=== PATIENT | female | born 1935 | race Two or more races ===

== ENCOUNTER 2020-01-14 17:59 | Inpatient (IN) | payer MEDICARE ==
[~2020-01-14] VITALS: Ht 152.4 cm; Wt 68.5 kg
[2020-01-14 22:17] VITALS: BP 132/69
--- NOTE | 2020-01-14 22:40 | NUR ---
NURSE NOTES: Patient arrived via ambulance as a direct admission from [facility]. Patient is awake and alert. On droplet/contact isolation precautions for shingles. Skin intact besides scab on L buttock. On room air with no signs of distress or SOB. Belongings checked and accounted for. Belongings form signed by patient. No IV access - will attempt to insert. Spoke with Dr. Gann. New orders received and carried out. Bed locked and in lowest position. Call light in reach. Bed alarm on. Will continue to monitor.
[2020-01-14] MEDS ORDERED: Fleet's Enema 133ml RECTAL PRN (23:15)
[2020-01-14] MEDS ORDERED: Tums 500mg ORAL PRN (23:15)
[2020-01-14] MEDS ORDERED: Milk of Magnesia 30ml Ud ORAL PRN (23:15)
[2020-01-14] MEDS ORDERED: HYDROcodone/Acetamin 10/325 tab ORAL PRN (23:15)
[2020-01-15] VITALS: BP 145/76
[2020-01-15] MEDS: ceFAZolin sod 1 GM in D5W 55 ML IVPB SCH ×4 (01:45→17:34)
--- NOTE | 2020-01-15 02:31 | NUR ---
NURSE NOTES: Patient extremely combative, attempting to punch/kick staff and trying to get out of bed without assist. Left message for Dr. Rouse. Awaiting callback. Will continue to monitor.
--- NOTE | 2020-01-15 02:52 | NUR ---
NURSE NOTES: Patient refusing MRSA and VRE swabs. Patient agitated and combative at this time. Will continue to monitor.
--- NOTE | 2020-01-15 02:57 | NUR ---
NURSE NOTES: Contacted Dr. Allison to inform him of patient's EKG results. Left message. Awaiting callback.
[2020-01-15 04:00] VITALS: BP 136/87
[2020-01-15 07:09] LABS: BASOPHILS % (AUTO) 0.6 % (0.0-2.0); EOSINOPHILS % (AUTO) 1.6 % (0.0-3.0); HEMATOCRIT 47.2 % (37.0-47.0); HEMOGLOBIN 16.2 G/DL (12.0-16.0); LYMPHOCYTES % (AUTO) 27.8 % (20.0-45.0); MEAN CORPUSCULAR VOLUME 89 FL (80-99); MONOCYTES % (AUTO) 10.5 % (1.0-10.0); NEUTROPHILS % (AUTO) 59.5 % (45.0-75.0); PLATELET COUNT 231 K/UL (150-450); RED BLOOD COUNT 5.32 M/UL (4.20-5.40); RED CELL DISTRIBUTION WIDTH 11.5 % (11.6-14.8); WHITE BLOOD COUNT 10.3 K/UL (4.8-10.8)
[2020-01-15 07:20] LABS: ALANINE AMINOTRANSFERASE 16 U/L (12-78); ALKALINE PHOSPHATASE 62 U/L (46-116); ANION GAP 8 mmol/L (5-15); ASPARTATE AMINO TRANSFERASE 17 U/L (15-37); BILIRUBIN,TOTAL 0.9 MG/DL (0.2-1.0); BLOOD UREA NITROGEN 16 mg/dL (7-18); CALCIUM 9.9 MG/DL (8.5-10.1); CARBON DIOXIDE 30 MMOL/L (21-32); CHLORIDE 104 MMOL/L (98-107); CREATININE 0.9 MG/DL (0.55-1.30); POTASSIUM 3.8 MMOL/L (3.5-5.1); SODIUM 142 MMOL/L (136-145)
--- NOTE | 2020-01-15 07:46 | NUR ---
HAND-OFF: Report given to ROBERTA Fisher.
[2020-01-15 08:00] VITALS: BP 143/78
--- NOTE | 2020-01-15 08:09 | NUR ---
NURSE NOTES: patient is in the bed alert and awake. respiration is even and unlabored on room air. verbalized pain to bilateral knee, will administer pain medication as prescribed. left hand saline lock 22 g is in-place, and patent. no redness, swelling and warmth noted on IV site. bed alarm on for fall precaution. call light is within reach, will continue to follow plan of care. Addendum: 01/15/20 at 0821 by Cyril Payne RN patient is in the bed alert and awake. respiration is even and unlabored on room air. verbalized pain to bilateral knee, will administer pain medication as prescribed. left hand saline lock 22 g is in-place, and patent. no redness, swelling and warmth noted on IV site. bed alarm on for fall precaution. patient has yellow gown and yellow sock on due to high risk for fall. Encouraged patient to call for assist at all time, verbalized understanding. call light is within reach, will continue to follow plan of care.
[2020-01-15] MEDS: Digoxin 0.125mg tab ORAL SCH (09:00)
[2020-01-15] MEDS ORDERED: Metoprolol Succinate XL 50mg tab ORAL SCH (09:00)
[2020-01-15] MEDS: Docusate 100mg cap ORAL SCH ×2 (09:00→17:37)
--- NOTE | 2020-01-15 09:00 | NUR ---
NURSE NOTES: Rn assessed patient with the help of guide dog instructor service. Per [place] speaking guide dog instructor [phone],patient is confused when she translated what RN asked to the questions,patient knows her name and knows that she is in the hospital but does not remember her date or current date. Patient complains of mild pain on her bilateral knees due to chronic OA. Appled lidoderm patches as ordered. Will continue to monitor.
--- NOTE | 2020-01-15 09:15 | NUR ---
NURSE NOTE: patient refused all her AM medications including acyclovir, and digoxin. educated patent the benefits of medication, patient still noncompliant. paged , awaiting to return call.
--- NOTE | 2020-01-15 10:00 | History and Physical Report ---
DATE OF ADMISSION: 01/14/2020 CHIEF COMPLAINT: Cellulitis, zoster, chest pain. HISTORY OF PRESENT ILLNESS: The patient is a pleasant 84-year-old female. She currently resides at the alf facility. She recently developed a rash that was consistent with shingles. She was started on acyclovir, developed worsening rash, erythema and pain, subjective fevers, and chills. She also complained of vague chest pain. In light of the worsening rash, she is now admitted for further evaluation and care. PAST MEDICAL HISTORY: As above. PAST SURGICAL HISTORY: None. CURRENT MEDICATIONS: Reconciled and reviewed. ALLERGIES: None. FAMILY HISTORY: None. SOCIAL HISTORY: Negative for tobacco, ethanol, or drugs. REVIEW OF SYSTEMS: GENERAL: Positive for fevers and chills, but no night sweats. HEENT: No headaches or visual changes. CARDIOPULMONARY: Positive for chest pain. No palpitations. No shortness of breath. GASTROINTESTINAL: No nausea or vomiting. GENITOURINARY: No urgency or frequency. MUSCULOSKELETAL: No joint pain or swelling. NEUROLOGIC: No evidence of seizures. Positive history of stroke with left-sided hemiparesis. PHYSICAL EXAMINATION: VITAL SIGNS: Temperature 98 degrees, pulse 81, respirations 20, and blood pressure 145/76. GENERAL: The patient is well developed, in no apparent distress. NECK: Supple. No lymphadenopathy. HEART: Irregularly irregular. LUNGS: Clear. ABDOMEN: Soft, nontender, and nondistended. EXTREMITIES: Without clubbing or cyanosis. Over the left , there are numerous vesicles with surrounding erythema. ASSESSMENT: This is a pleasant female admitted with complaints of shingles complicated by cellulitis, atypical chest pain, atrial fibrillation, and prior history of stroke. PLAN: 1. Oral acyclovir, IV antibiotics for cellulitis. 2. Cardiology followup regarding the patient's chest pain. 3. Continue outpatient cardiac regimen including Xarelto for stroke prophylaxis. 4. Plan of care has been discussed with the patient. Giancarlo Gann M.D. DR: JULIANNA JOB#: [id number] CC:
--- NOTE | 2020-01-15 11:35 | NUR ---
NURSE NOTES: CRE,VRE swab done and sent it to lab,patient refused MRSA swab x3.
[2020-01-15 12:00] VITALS: BP 111/70
--- NOTE | 2020-01-15 12:51 | NUR ---
NURSE NOTES: Dr. Gann is aware of refusal of medications including acyclovior po. Dr. Gann said he contacted to Dr. Reyes and Dr. Reyes changed po to IV Acyclovior and patient was seen by Dr. Sai Thomas who covers for Dr. Reyes.
[2020-01-15] MEDS ORDERED: TYLENOL325 MG ORAL (15:08)
[2020-01-15] MEDS ORDERED: MELATONIN3 M3 PO (15:08)
[2020-01-15] MEDS ORDERED: NORCO 10-325 T1 EACH ORAL (15:08)
[2020-01-15] MEDS ORDERED: LIDODERM700 M1 TOPIC (15:08)
[2020-01-15] MEDS ORDERED: FAMOTIDINE20 MG ORAL (15:08)
[2020-01-15] MEDS ORDERED: FLEET ENEMA133 ML RECTAL (15:08)
[2020-01-15] MEDS ORDERED: DIGOXIN125 MCG ORAL (15:08)
[2020-01-15] MEDS ORDERED: XARELTO10 MG ORAL (15:08)
[2020-01-15] MEDS ORDERED: MILK OF MA400 MG/51 ORAL (15:08)
[2020-01-15] MEDS ORDERED: LIPITOR40 MG ORAL (15:08)
[2020-01-15] MEDS ORDERED: LEVOTHYROXINE75 MCG ORAL (15:08)
[2020-01-15] MEDS ORDERED: DOCUSATE SODIU100 MG ORAL (15:08)
[2020-01-15] MEDS ORDERED: BISACODYL10 M1 RC (15:08)
[2020-01-15] MEDS: Acyclovir 700 MG in NS 110 ML IV SCH (15:35)
[2020-01-15 16:00] VITALS: BP 140/84
[2020-01-15] MEDS: Xarelto 10mg tab ORAL SCH (17:37)
--- NOTE | 2020-01-15 19:18 | NUR ---
HAND-OFF: Report given to Pauline GRANADOS.
--- NOTE | 2020-01-15 19:53 | NUR ---
NURSE NOTES: Patient is in bed, awake and alert x2. No signs of distress or SOB. IV intact and KVO at this time. Bed locked and in lowest position. Bed alarm on for fall precautions. No C/O of pain at this time. Call light in easy reach. Will continue to monitor the patient.
[2020-01-15 20:00] VITALS: BP 117/60
[2020-01-15] MEDS: Metoprolol Tartrate 50mg tab ORAL SCH (21:59)
[2020-01-15] MEDS: Atorvastatin 20mg tab ORAL SCH (21:59)
--- NOTE | 2020-01-15 22:45 | Consultation ---
DATE OF CONSULTATION: 01/14/2020 INFECTIOUS DISEASE CONSULTATION This consult is for coverage of Dr. Reyes. CONSULTING PHYSICIAN: Sai Thomas M.D. PRIMARY ATTENDING PHYSICIAN: Giancarlo Gann M.D. REASON FOR CONSULT: Cutaneous Herpes zoster. HISTORY OF PRESENT ILLNESS: The patient is an 84-year-old white female, admitted last night from a [facility]dc because of rash in the buttock area. She was diagnosed with Herpes zoster couple of days ago, started on acyclovir, had worsening rash, erythema, has subjective fever. Continues to use p.o. acyclovir. PAST MEDICAL HISTORY: Significant for previous CVA, atrial fibrillation, dementia, osteoarthritis, dyslipidemia, hypothyroidism. MEDICATIONS: Getting atorvastatin, rivaroxaban, acyclovir IV, digoxin, Colace, metoprolol, levothyroxine, famotidine, cefazolin, [place], Tylenol, magnesium hydroxide, bisacodyl. SOCIAL HISTORY: Originally from [facility]. No history of alcohol, drug abuse, or smoking. REVIEW OF SYSTEMS: Limited because of language barrier. PHYSICAL EXAMINATION: VITAL SIGNS: Temperature 98.6, pulse 96, blood pressure 111/70. GENERAL APPEARANCE: Seems to be well developed, in no acute distress. HEAD AND NECK: [place] conjunctiva. HEART: Normal rate. LUNGS: Clear. ABDOMEN: Soft, nontender. EXTREMITIES: She has no edema. Has varicose veins in the legs. SKIN: Have small area of ulceration on left buttock internal area. LABORATORY DATA: WBC 10.3, hemoglobin 16.2, hematocrit of 47.2, and platelets 231. Sodium 142, potassium 3.8, chloride 104, bicarbonate 30, glucose 123, BUN 16, creatinine 0.9, magnesium 1.7. IMPRESSION: 1. Herpes zoster, clinically diagnosed in fdc, may have cellulitis and pressure ulcers in the area. 2. She has hypothyroidism. 3. Atrial fibrillation. 4. Dementia. 5. Osteoarthritis. 6. Dyslipidemia. RECOMMENDATIONS: We will continue with IV Ancef and IV acyclovir. We will follow up the patient clinically. At the end of my exam, I thank, Dr. Gann, for involving me in the care of this patient. Sai Thomas M.D. DR: TYRA JOB#: [id number] CC:
[2020-01-16] VITALS: BP 121/63
[2020-01-16] MEDS: ceFAZolin sod 1 GM in D5W 55 ML IVPB SCH ×2 (00:57→05:58)
[2020-01-16] MEDS: Acyclovir 700 MG in NS 110 ML IV SCH ×2 (03:06→13:54)
--- NOTE | 2020-01-16 03:59 | NUR ---
NURSE NOTES: MRSA nares swab done and sent to lab.
[2020-01-16 04:00] VITALS: BP 118/89
--- NOTE | 2020-01-16 05:15 | Progress Note ---
DATE: 01/15/2020 CARDIOLOGY PROGRESS NOTE SUBJECTIVE: The patient has pain on her buttocks due to rash. No chest pain or shortness of breath. OBJECTIVE: VITAL SIGNS: Blood pressure 117/60, heart rate 100, respiratory rate 20, afebrile, and oxygen saturation 96%. LUNGS: Clear. CARDIAC: Irregularly irregular. Normal S1 and S2. A 1/6 systolic murmur at lower left sternal border. ABDOMEN: Soft and nontender. SKIN: As previously outlined. EXTREMITIES: Trace edema with varicosities. IMPRESSION: 1. Herpes zoster with neuropathy. 2. Atrial fibrillation with increased ventricular rate. 3. Coagulopathy for cardioembolic prophylaxis with rivaroxaban. 4. Acute on chronic systolic and diastolic congestive heart failure. 5. Hyperlipidemia, on statin therapy. 6. Hypothyroidism, on replacement therapy. PLAN: 1. Check digoxin level. 2. Continue drug. 3. Maintain beta-blockade. 4. Check lipid panel and CK as well as uric acid levels. 5. Check digoxin level. 6. Antimicrobials. 7. Antiviral therapy. 8. Skin care. 9. Pain control. Lance Allison M.D. DR: DEA JOB#: [id number] CC:
[2020-01-16 07:10] LABS: BASOPHILS % (AUTO) 0.8 % (0.0-2.0); HEMATOCRIT 44.7 % (37.0-47.0); HEMOGLOBIN 15.7 G/DL (12.0-16.0); LYMPHOCYTES % (AUTO) 28.7 % (20.0-45.0); MEAN CORPUSCULAR VOLUME 87 FL (80-99); MONOCYTES % (AUTO) 12.1 % (1.0-10.0); NEUTROPHILS % (AUTO) 56.4 % (45.0-75.0); PLATELET COUNT 218 K/UL (150-450); RED BLOOD COUNT 5.12 M/UL (4.20-5.40); RED CELL DISTRIBUTION WIDTH 11.4 % (11.6-14.8); WHITE BLOOD COUNT 9.7 K/UL (4.8-10.8)
--- NOTE | 2020-01-16 07:24 | NUR ---
HAND-OFF: Report given to ROBERTA Grande.
--- NOTE | 2020-01-16 07:52 | NUR ---
NURSE NOTES: received patient in bed, asleep, no signs of distress. L hand IV access saline locked. Bed locked at lowest position possible, call light within easy reach, siderails up x2, on bed alarm. Will continue to monitor patient and follow up on the POC. Addendum: 01/16/20 at 1101 by CINDY PATEL RN NURSE NOTES: right IV access
[2020-01-16 08:00] VITALS: BP 121/86
[2020-01-16 08:15] LABS: ANION GAP 9 mmol/L (5-15); BLOOD UREA NITROGEN 16 mg/dL (7-18); CALCIUM 9.7 MG/DL (8.5-10.1); CARBON DIOXIDE 28 MMOL/L (21-32); CHLORIDE 104 MMOL/L (98-107); CHOLESTEROL 124 MG/DL (< 200); CREATINE KINASE 72 U/L (26-308); CREATININE 0.9 MG/DL (0.55-1.30); HDL CHOLESTEROL 34 MG/DL (40-60); SODIUM 141 MMOL/L (136-145); TRIGLYCERIDES 68 MG/DL (30-150)
[2020-01-16] MEDS: Digoxin 0.125mg tab ORAL SCH (09:51)
[2020-01-16] MEDS: Docusate 100mg cap ORAL SCH ×2 (09:51→16:59)
[2020-01-16] MEDS: Metoprolol Tartrate 50mg tab ORAL SCH ×2 (09:52→21:12)
--- NOTE | 2020-01-16 10:30 | Consultation ---
DATE OF CONSULTATION: 01/14/2020 CARDIOLOGY CONSULT CONSULTING PHYSICIAN: Lance Allison M.D. REQUESTING PHYSICIAN: Giancarlo Gann M.D. REASON: Atrial fibrillation. HISTORY OF PRESENT ILLNESS: This is an 84-year-old female residing at a group home facility, who presented to the hospital with the rash concerning for zoster. The patient has had pain, fevers, and worsening erythema. She has also had some chills. She has complained of chest pain as well. PAST MEDICAL HISTORY: 1. Cerebrovascular disease with dementia. 2. Atrial fibrillation. 3. Hypothyroidism. 4. Hyperlipidemia. ALLERGIES: None known. FAMILY HISTORY: Noncontributory. SOCIAL HISTORY: Negative for smoking, alcohol, or substance abuse. MEDICATIONS: Reviewed and reconciled. REVIEW OF SYSTEMS: Cannot be reliably obtained from the patient. PHYSICAL EXAMINATION: GENERAL: Appears well, in no acute distress. VITAL SIGNS: Blood pressure 145/76, heart rate 80, respiratory rate 20, and afebrile. HEENT: Temporal wasting. Conjunctivae pink. Oropharynx clear. Mucous membranes dry. NECK: Supple. Jugular venous pressure normal. LUNGS: Clear. CARDIAC: Irregularly irregular rhythm. Normal S1 and S2 with a 1/6 early systolic murmur at apex. Point of maximal impulse is sustained. ABDOMEN: Soft and nontender. EXTREMITIES: No clubbing or cyanosis. There is erythema over the left buttocks area with vesicular lesions. The patient has varicosities on her extremities. LABORATORY AND IMAGING DATA: EKG atrial fibrillation with nonspecific ST-T change. White count 10 and hemoglobin 16. BUN 16 and creatinine 0.9. Magnesium 1.7. Pro-natriuretic peptide 2100. IMPRESSION: 1. Herpes zoster. 2. Chronic atrial fibrillation, on anticoagulation for cardioembolic prophylaxis. 3. Hypomagnesemia. 4. Acute on chronic diastolic and systolic congestive heart failure. 5. Cerebrovascular disease with dementia. 6. Hypothyroidism, on replacement therapy. PLAN: 1. Antiviral therapy. 2. Continue full anticoagulation with rivaroxaban. 3. Check lipid panel, CK level, and digoxin level. 4. Maintain beta-abdulaziz. 5. Full thyroid panel to be checked as well. 6. If not recently done, an echocardiographic assessment of left ventricular function will help guide long-term management and appropriate medications. Lance Tray Allison DR: ROSHNI JOB#: [id number] CC:
--- NOTE | 2020-01-16 10:56 | Infectious Diseases Prog Note ---
Assessment/Plan Assessment/Plan antibiotics : ancef, acyclovir iv A 1. left buttock shingles 2. CVA 3. dementia 4. hypothyroidism P 1. continue iv acyclovir 2. d/c ancef 3. will follow up cultures Subjective Constitutional: Denies: fever, chills Respiratory: Denies: shortness of breath, dry cough Gastrointestinal/Abdominal: Denies: nausea, vomiting, diarrhea Musculoskeletal: Reports: pain Allergies: Coded Allergies: No Known Allergies (Unverified , 01/14/20) Objective Vital Signs Last 24 Hour Vital Signs Date Time Temp Pulse Resp B/P (MAP) Pulse Ox O2 Delivery O2 Flow Rate FiO2 01/16/20 09:52 98 121/86 01/16/20 09:51 98 01/16/20 08:00 98.3 98 19 121/86 (98) 98 01/16/20 04:00 97.8 96 20 118/89 (99) 97 01/16/20 00:00 97.6 99 20 121/63 (82) 96 01/15/20 21:59 100 117/60 01/15/20 20:12 Room Air 01/15/20 20:00 97.2 100 20 117/60 (79) 97 01/15/20 16:00 98.7 97 16 140/84 (102) 94 01/15/20 12:00 98.6 96 16 111/70 (84) 95 Height (Feet): 5 Weight (Pounds): 151 Respiratory/Chest: lungs clear Cardiovascular: normal rate, regular rhythm, no gallop/murmur Abdomen: soft, non tender Extremities: no edema Skin: rash - on left buttock Laboratory Tests Test 01/16/20 04:45 01/16/20 04:50 White Blood Count 9.7 K/UL (4.8-10.8) Red Blood Count 5.12 M/UL (4.20-5.40) Hemoglobin 15.7 G/DL (12.0-16.0) Hematocrit 44.7 % (37.0-47.0) Mean Corpuscular Volume 87 FL (80-99) Mean Corpuscular Hemoglobin 30.7 PG (27.0-31.0) Mean Corpuscular Hemoglobin Concent 35.1 G/DL (32.0-36.0) Red Cell Distribution Width 11.4 % (11.6-14.8) L Platelet Count 218 K/UL (150-450) Mean Platelet Volume 6.7 FL (6.5-10.1) Neutrophils (%) (Auto) 56.4 % (45.0-75.0) Lymphocytes (%) (Auto) 28.7 % (20.0-45.0) Monocytes (%) (Auto) 12.1 % (1.0-10.0) H Eosinophils (%) (Auto) 2.0 % (0.0-3.0) Basophils (%) (Auto) 0.8 % (0.0-2.0) Sodium Level 141 MMOL/L (136-145) Potassium Level 4.0 MMOL/L (3.5-5.1) Chloride Level 104 MMOL/L (98-107) Carbon Dioxide Level 28 MMOL/L (21-32) Anion Gap 9 mmol/L (5-15) Blood Urea Nitrogen 16 mg/dL (7-18) Creatinine 0.9 MG/DL (0.55-1.30) Estimat Glomerular Filtration Rate 59.4 mL/min (>60) Glucose Level 108 MG/DL (74-106) H Uric Acid 4.9 MG/DL (2.6-7.2) Calcium Level 9.7 MG/DL (8.5-10.1) Total Creatine Kinase 72 U/L (26-308) Triglycerides Level 68 MG/DL (30-150) Cholesterol Level 124 MG/DL (< 200) LDL Cholesterol 81 mg/dL (<100) HDL Cholesterol 34 MG/DL (40-60) L Cholesterol/HDL Ratio 3.6 (3.3-4.4) Thyroid Stimulating Hormone (TSH) 0.863 uiU/mL (0.358-3.740) Pro-B-Type Natriuretic Peptide 1854 pg/mL (0-125) H Current Medications Medications (Trade) Dose Ordered Sig/Benjamin Route PRN Reason Start Time Stop Time Status Last Admin Dose Admin Acetaminophen (Tylenol) 650 mg Q6H PRN ORAL Mild Pain (Pain Scale 1-4) 01/14/20 23:15 02/13/20 23:14 Acetaminophen/ Hydrocodone Bitart ([place]right 10/325) 1 tab Q4H PRN ORAL For pain 5-7 01/14/20 23:15 01/21/20 23:14 01/16/20 10:07 Acyclovir 700 mg/ Sodium Chloride 110 ml @ 110 mls/hr Q12H IV 01/15/20 14:00 02/14/20 13:59 01/16/20 03:06 Atorvastatin Calcium (Lipitor) 40 mg BEDTIME ORAL 01/15/20 21:00 02/14/20 20:59 01/15/20 21:59 Bisacodyl (Dulcolax) 10 mg DAILYPRN PRN RECTAL Constipation 01/14/20 23:15 02/13/20 23:14 Calcium Carbonate (Tums) 1,000 mg Q4H PRN ORAL GASTRIC UPSET 01/14/20 23:15 02/13/20 23:14 Cefazolin Sodium 1 gm/Dextrose 55 ml @ 110 mls/hr Q6HR IVPB 01/15/20 00:00 01/22/20 00:00 01/16/20 05:58 Digoxin (Lanoxin) 0.125 mg DAILY ORAL 01/15/20 09:00 02/14/20 08:59 01/16/20 09:51 Docusate Sodium (Colace) 100 mg BID ORAL 01/15/20 09:00 02/14/20 08:59 01/16/20 09:51 Famotidine (Pepcid) 20 mg ACBREAKFAST ORAL 01/15/20 06:30 02/14/20 06:29 01/16/20 06:26 Levothyroxine Sodium (Synthroid) 88 mcg DAILY@0630 ORAL 01/15/20 06:30 02/14/20 06:29 01/16/20 06:26 Lidocaine (Lidoderm 5% PATCH) 2 patch DAILY TDERMAL 01/15/20 09:00 02/14/20 08:59 01/16/20 09:52 Magnesium Hydroxide (Mom) 30 ml DAILYPRN PRN ORAL bowel management 01/14/20 23:15 02/13/20 23:14 Metoprolol Tartrate (Lopressor) 50 mg Q12HR ORAL 01/15/20 21:00 02/14/20 08:59 01/16/20 09:52 Rivaroxaban (Xarelto) 20 mg 1800 ORAL 01/15/20 18:00 02/14/20 17:59 01/15/20 17:37 Sodium Phosphate (Fleet's Sodium Phosl Enema) 133 ml DAILY PRN RECTAL Constipation 01/14/20 23:15 02/13/20 23:14 Cedric Reyes MD Jan 16, 2020 10:56
--- NOTE | 2020-01-16 11:50 | General Progress Note ---
Assessment/Plan Problem List: (1) Afib ICD Codes: I48.91 - Unspecified atrial fibrillation SNOMED: 20779900 (2) Cellulitis ICD Codes: L03.90 - Cellulitis, unspecified SNOMED: 394382026 (3) Psychiatric care SNOMED: 58230007, 899505764 (4) Shingles ICD Codes: B02.9 - Zoster without complications SNOMED: 7853295 Status: stable, progressing Assessment/Plan: abx per id psych rx xarelto monitor for bleeding skin care Subjective ROS Limited/Unobtainable: No Constitutional: Reports: malaise, weakness HEENT: Reports: no symptoms Cardiovascular: Reports: no symptoms Respiratory: Reports: no symptoms Gastrointestinal/Abdominal: Reports: no symptoms Genitourinary: Reports: no symptoms Neurologic/Psychiatric: Reports: pre-existing deficit Endocrine: Reports: no symptoms Hematologic/Lymphatic: Reports: no symptoms Allergies: Coded Allergies: No Known Allergies (Unverified , 01/14/20) All Systems: reviewed and negative except above Subjective no events. w./o complaints. no fever or chills. not taking oral meds. on iv abx. Objective Last 24 Hour Vital Signs Date Time Temp Pulse Resp B/P (MAP) Pulse Ox O2 Delivery O2 Flow Rate FiO2 01/16/20 10:37 98.3 01/16/20 09:52 98 121/86 01/16/20 09:51 98 01/16/20 09:00 Room Air 01/16/20 08:00 98.3 98 19 121/86 (98) 98 01/16/20 04:00 97.8 96 20 118/89 (99) 97 01/16/20 00:00 97.6 99 20 121/63 (82) 96 01/15/20 21:59 100 117/60 01/15/20 20:12 Room Air 01/15/20 20:00 97.2 100 20 117/60 (79) 97 01/15/20 16:00 98.7 97 16 140/84 (102) 94 01/15/20 12:00 98.6 96 16 111/70 (84) 95 Intake and Output 01/15/20 01/16/20 19:00 07:00 Intake Total 220 ml Output Total 450 ml Balance -230 ml Intake IV Total 220 ml Output Urine Total 450 ml # Voids 5 3 Laboratory Tests 01/16/20 04:45: White Blood Count 9.7, Red Blood Count 5.12, Hemoglobin 15.7, Hematocrit 44.7, Mean Corpuscular Volume 87, Mean Corpuscular Hemoglobin 30.7, Mean Corpuscular Hemoglobin Concent 35.1, Red Cell Distribution Width 11.4L, Platelet Count 218, Mean Platelet Volume 6.7, Neutrophils (%) (Auto) 56.4, Lymphocytes (%) (Auto) 28.7, Monocytes (%) (Auto) 12.1H, Eosinophils (%) (Auto) 2.0, Basophils (%) ( Auto) 0.8, Sodium Level 141, Potassium Level 4.0, Chloride Level 104, Carbon Dioxide Level 28, Anion Gap 9, Blood Urea Nitrogen 16, Creatinine 0.9, Estimat Glomerular Filtration Rate 59.4, Glucose Level 108H, Uric Acid 4.9, Calcium Level 9.7, Total Creatine Kinase 72, Triglycerides Level 68, Cholesterol Level 124, LDL Cholesterol 81, HDL Cholesterol 34L, Cholesterol/HDL Ratio 3.6, Thyroid Stimulating Hormone (TSH) 0.863 01/16/20 04:50: Pro-B-Type Natriuretic Peptide 1854H Height (Feet): 5 Weight (Pounds): 151 General Appearance: WD/WN, alert, confused Neck: non-tender, normal alignment, supple Cardiovascular: normal peripheral pulses, normal rate, irregularly irregular Respiratory/Chest: chest wall non-tender, lungs clear, normal breath sounds, no respiratory distress Abdomen: normal bowel sounds, non tender, soft, no organomegaly Edema: no edema noted Arm (L), no edema noted Arm (R), no edema noted Leg (L), no edema noted Leg (R), no edema noted Pedal (L), no edema noted Pedal (R), no edema noted Generalized Neurologic: motor weakness Skin: normal pigmentation, other - +zoster rash on hip Giancarlo aGnn MD Jan 16, 2020 11:50
[2020-01-16 12:00] VITALS: BP 113/69
[2020-01-16 16:00] VITALS: BP 128/83
[2020-01-16] MEDS: Xarelto 10mg tab ORAL SCH (18:14)
--- NOTE | 2020-01-16 19:39 | NUR ---
HAND-OFF: Report given to ROBERTA Oconnor.
[2020-01-16 20:00] VITALS: BP 108/63
[2020-01-16] MEDS: Atorvastatin 20mg tab ORAL SCH (21:10)
--- NOTE | 2020-01-16 22:30 | Progress Note ---
DATE: 01/16/2020 CARDIOLOGY PROGRESS NOTE SUBJECTIVE: The patient is not taking oral medications. She remains on IV antimicrobials. OBJECTIVE: VITAL SIGNS: Blood pressure 121/86, heart rate 98, respirations 19, afebrile. LUNGS: Bilateral breath sounds. Few rhonchi. HEART: Irregularly irregular rhythm. Normal S1, S2. ABDOMEN: Soft. EXTREMITIES: No edema. Leg remains with erythema and irritation. LABORATORY DATA: TSH 0.86. Pro-natriuretic peptide 1800. BUN 16, creatinine 0.9. IMPRESSION: 1. Atrial fibrillation with increased ventricular rate, likely due to noncompliance with oral medications. 2. Herpes zoster. 3. Hypomagnesemia, corrected. 4. Acute and chronic diastolic and systolic congestive heart failure. 5. Hypothyroidism. 6. Cerebrovascular disease with dementia. PLAN: 1. Continue medications for Zoster. May need NG tube if refuses. 2. Anticoagulation with rivaroxaban. 3. Digoxin and beta-abdulaziz for rate control. 4. Continue current thyroid replacement therapy. 5. Optimize anti-failure regimen with oral medications. Lance Allison M.D. DR: RUBÉN JOB#: [id number] CC:
[2020-01-17] VITALS: BP 135/65
[2020-01-17] MEDS: Acyclovir 700 MG in NS 110 ML IV SCH ×2 (02:55→14:45)
[2020-01-17 04:00] VITALS: BP 126/63
--- NOTE | 2020-01-17 07:00 | NUR ---
NURSE NOTES: Patient picked up and transported to GI lab. Addendum: 01/17/20 at 0708 by EVAN SMITH RN Incorrect patient.
--- NOTE | 2020-01-17 07:08 | NUR ---
HAND-OFF: Report given to ROBERTA Grande.
--- NOTE | 2020-01-17 07:42 | NUR ---
NURSE NOTES: received patient in bed, asleep, no signs of distress. R hand IV access saline locked. Bed locked at lowest position possible, call light within easy reach, siderails up x2, on bed alarm. Will continue to monitor patient and follow up on the POC.
[2020-01-17 08:00] VITALS: BP 133/70
[2020-01-17] MEDS: Digoxin 0.125mg tab ORAL SCH (10:56)
[2020-01-17] MEDS: Docusate 100mg cap ORAL SCH ×2 (10:56→17:51)
[2020-01-17] MEDS: Metoprolol Tartrate 50mg tab ORAL SCH ×2 (10:56→21:51)
[2020-01-17] MEDS: Lisinopril 20mg tab ORAL SCH (10:56)
--- NOTE | 2020-01-17 10:56 | Infectious Diseases Prog Note ---
Assessment/Plan Assessment/Plan antibiotics : acyclovir iv A 1. left buttock shingles 2. CVA 3. dementia 4. hypothyroidism P 1. continue iv acyclovir 7 more days 2. will follow up cultures Subjective Constitutional: Denies: fever, chills Respiratory: Denies: shortness of breath, dry cough Gastrointestinal/Abdominal: Denies: nausea, vomiting, diarrhea Musculoskeletal: Reports: pain Allergies: Coded Allergies: No Known Allergies (Unverified , 01/14/20) Objective Vital Signs Last 24 Hour Vital Signs Date Time Temp Pulse Resp B/P (MAP) Pulse Ox O2 Delivery O2 Flow Rate FiO2 01/17/20 08:00 98.2 101 19 133/70 (91) 96 01/17/20 04:00 98.3 76 20 126/63 (84) 95 01/17/20 00:00 98.1 72 18 135/65 (88) 95 01/16/20 21:12 75 119/73 01/16/20 20:16 Room Air 01/16/20 20:00 97.3 77 20 108/63 (78) 96 01/16/20 16:00 98.6 101 20 128/83 (98) 97 01/16/20 12:00 98.6 73 18 113/69 (84) 98 Height (Feet): 5 Weight (Pounds): 151 Respiratory/Chest: lungs clear Cardiovascular: normal rate, regular rhythm, no gallop/murmur Abdomen: soft, non tender Extremities: no edema Skin: ulcers - left buttock Current Medications Medications (Trade) Dose Ordered Sig/Benjamin Route PRN Reason Start Time Stop Time Status Last Admin Dose Admin Acetaminophen (Tylenol) 650 mg Q6H PRN ORAL Mild Pain (Pain Scale 1-4) 01/14/20 23:15 02/13/20 23:14 Acetaminophen/ Hydrocodone Bitart ([place] 10/325) 1 tab Q4H PRN ORAL For pain 5-7 01/14/20 23:15 01/21/20 23:14 01/16/20 10:07 Acyclovir 700 mg/ Sodium Chloride 110 ml @ 110 mls/hr Q12H IV 01/15/20 14:00 02/14/20 13:59 01/17/20 02:55 Atorvastatin Calcium (Lipitor) 40 mg BEDTIME ORAL 01/15/20 21:00 02/14/20 20:59 01/16/20 21:10 Bisacodyl (Dulcolax) 10 mg DAILYPRN PRN RECTAL Constipation 01/14/20 23:15 02/13/20 23:14 Calcium Carbonate (Tums) 1,000 mg Q4H PRN ORAL GASTRIC UPSET 01/14/20 23:15 02/13/20 23:14 Digoxin (Lanoxin) 0.125 mg DAILY ORAL 01/15/20 09:00 02/14/20 08:59 01/16/20 09:51 Docusate Sodium (Colace) 100 mg BID ORAL 01/15/20 09:00 02/14/20 08:59 01/16/20 16:59 Famotidine (Pepcid) 20 mg ACBREAKFAST ORAL 01/15/20 06:30 02/14/20 06:29 01/17/20 06:16 Levothyroxine Sodium (Synthroid) 88 mcg DAILY@0630 ORAL 01/15/20 06:30 02/14/20 06:29 01/17/20 06:16 Lidocaine (Lidoderm 5% PATCH) 2 patch DAILY TDERMAL 01/15/20 09:00 02/14/20 08:59 01/16/20 09:52 Lisinopril (PriniviL) 20 mg DAILY ORAL 01/17/20 09:00 02/16/20 08:59 Magnesium Hydroxide (Mom) 30 ml DAILYPRN PRN ORAL bowel management 01/14/20 23:15 02/13/20 23:14 Metoprolol Tartrate (Lopressor) 50 mg Q12HR ORAL 01/15/20 21:00 02/14/20 08:59 01/16/20 21:12 Rivaroxaban (Xarelto) 20 mg 1800 ORAL 01/15/20 18:00 02/14/20 17:59 01/16/20 18:14 Sodium Phosphate (Fleet's Sodium Phosl Enema) 133 ml DAILY PRN RECTAL Constipation 01/14/20 23:15 02/13/20 23:14 Cedric Reyes MD Jan 17, 2020 10:56
--- NOTE | 2020-01-17 10:57 | NUR ---
NURSE NOTES: given am meds at this time as pt refused earlier.
[2020-01-17 12:00] VITALS: BP 103/60
[2020-01-17 16:00] VITALS: BP 112/58
--- NOTE | 2020-01-17 16:32 | General Progress Note ---
Assessment/Plan Problem List: (1) Afib ICD Codes: I48.91 - Unspecified atrial fibrillation SNOMED: 58088116 (2) Cellulitis ICD Codes: L03.90 - Cellulitis, unspecified SNOMED: 932615850 (3) Psychiatric care SNOMED: 44702680, 130559089 (4) Shingles ICD Codes: B02.9 - Zoster without complications SNOMED: 7645023 Status: stable, progressing Assessment/Plan: abx per id psych eval called xarelto monitor for bleeding skin care dc planning to snf compliance may be better in a familiar environment Subjective ROS Limited/Unobtainable: No Constitutional: Reports: malaise, weakness HEENT: Reports: no symptoms Cardiovascular: Reports: no symptoms Respiratory: Reports: no symptoms Gastrointestinal/Abdominal: Reports: no symptoms Genitourinary: Reports: no symptoms Neurologic/Psychiatric: Reports: anxiety, depressed Endocrine: Reports: no symptoms Hematologic/Lymphatic: Reports: no symptoms Allergies: Coded Allergies: No Known Allergies (Unverified , 01/14/20) All Systems: reviewed and negative except above Subjective no events. w/o complaints. no fever or chills. not taking oral meds. on iv abx. withdrawn. id and cards appreciated Objective Last 24 Hour Vital Signs Date Time Temp Pulse Resp B/P (MAP) Pulse Ox O2 Delivery O2 Flow Rate FiO2 01/17/20 12:00 98.1 86 19 103/60 (74) 95 01/17/20 10:56 133/70 01/17/20 10:56 101 133/70 01/17/20 10:56 101 01/17/20 09:00 Room Air 01/17/20 08:00 98.2 101 19 133/70 (91) 96 01/17/20 04:00 98.3 76 20 126/63 (84) 95 01/17/20 00:00 98.1 72 18 135/65 (88) 95 01/16/20 21:12 75 119/73 01/16/20 20:16 Room Air 01/16/20 20:00 97.3 77 20 108/63 (78) 96 Intake and Output 01/16/20 01/17/20 18:59 06:59 Intake Total 1000 ml Balance 1000 ml Intake Oral 1000 ml # Voids 8 4 Height (Feet): 5 Weight (Pounds): 151 General Appearance: WD/WN, alert, confused Neck: non-tender, normal alignment, supple, normal inspection Cardiovascular: normal peripheral pulses, normal rate, irregularly irregular Respiratory/Chest: chest wall non-tender, lungs clear, normal breath sounds, no respiratory distress Abdomen: normal bowel sounds, non tender, soft, no organomegaly Edema: no edema noted Arm (L), no edema noted Arm (R), no edema noted Leg (L), no edema noted Leg (R), no edema noted Pedal (L), no edema noted Pedal (R), no edema noted 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
--- NOTE | 2020-01-17 17:03 | NUR ---
CASE MANAGEMENT:INITIAL REVIEW 01/15/2020 84 YR OLD FEMALE DIRECT ADMIT FROM [facility] CC;CELLULITIS. ZOSTER. CHEST PAIN. SI;CELLULITIS. ZOSTER. CHEST PAIN. 98.1 98 20 145/76 96% ON RA H/H 16.2/47.2 MG 1.7 BNP 0 IS;ACYCLOVIR IV METOPROLOL PO LISINOPRIL PO PEPCID PO ADMITTED TO MED SURG MED SURG STATUS DCP;FROM [facility] CASE MANAGEMENT:REVIEW 01/17/2020 SI;A-FIB. CELLULITIS. SHINGLES. 98.3 101 20 133/70 95% ON RA IS;ACYCLOVIR IV METOPROLOL PO LISINOPRIL PO PEPCID PO MED SURG STATUS DCP; FROM [facility]
[2020-01-17] MEDS: Xarelto 10mg tab ORAL SCH (17:52)
--- NOTE | 2020-01-17 19:45 | NUR ---
NURSE NOTES: Pt. received from ROBERTA Grande. Pt. is AAOx3, on room air, no complaints of pain, no indications of respiratory distress. IV site right hand asymptomatic, intact, and patent; saline locked. Bed is low and locked, side rails x2 up, bed alarm active, and call light in reach. Will continue to monitor.
[2020-01-17 20:00] VITALS: BP 119/62
[2020-01-17] MEDS ORDERED: METOPROLOL TART50 M1 ORAL (20:05)
[2020-01-17] MEDS: Atorvastatin 20mg tab ORAL SCH (21:52)
[2020-01-18] VITALS (7 sets, daily range): BP systolic 103–138; BP diastolic 64–98
--- NOTE | 2020-01-18 | NUR ---
NURSE NOTES: Pt. removed right hand IV access. Will attempt to reinsert new IV.
--- NOTE | 2020-01-18 00:50 | NUR ---
NURSE NOTES: IV access left hand 22g, asymptomatic, intact, and patent.
[2020-01-18] MEDS: Acyclovir 700 MG in NS 110 ML IV SCH ×2 (01:05→14:01)
--- NOTE | 2020-01-18 06:00 | Consultation ---
DATE OF CONSULTATION: 01/17/2020 HISTORY OF PRESENT ILLNESS: The patient is an 84-year-old female with a history of multiple medical issues including shingles, cellulitis, AFib, depression, and dementia. The patient was withdrawn and minimally verbal today. Upon evaluation, the patient was not engaged. She was refusing the medication earlier this morning; however, she took it later when it was offered by a nurse. PAST PSYCHIATRIC HISTORY: 1. Dementia. 2. Depression. PAST MEDICAL HISTORY: 1. Shingles. 2. Cellulitis. 3. AFib. ALLERGIES: No known drug allergies. SUBSTANCE ABUSE HISTORY: No known history of illicit drug use or alcohol. MENTAL STATUS EXAMINATION: The patient is alert and oriented times self and place. She is minimally verbal and mood is depressed. Affect is flat. Poor eye contact. Thought process is concrete. Thought content, no suicidal or homicidal ideation. Cognition is impaired. Insight and judgment impaired. ASSESSMENT: [place] I Dementia mostly likely vascular type. Major depressive disorder. [place] II Deferred. [place] III AFib. [place] IV Low. [place] V 20. PLAN: 1. Lexapro 10 mg in the morning. 2. The patient lacks capacity to refuse medications as she lacks capacity to make decision. The nurses instructed to give the medication against her will. The patient took her medications later during the day. Grace Rouse M.D. DR: SYLVIA JOB#: [id number] CC:
--- NOTE | 2020-01-18 06:30 | Progress Note ---
DATE: 01/17/2020 CARDIOLOGY PROGRESS NOTE SUBJECTIVE: The patient is refusing oral medications. Most of the time, she remains on IV antimicrobials. She was withdrawn and occasionally agitated. PHYSICAL EXAMINATION: VITAL SIGNS: Blood pressure 103/60, heart rate 76 to 101, respiratory rate 18 to 20, afebrile, room air oxygen saturation 95%. LUNGS: Diminished breath sounds. No wheezing. CARDIAC: Irregularly irregular rhythm. Normal S1, S2. ABDOMEN: Soft. EXTREMITIES: Trace edema. DIAGNOSTIC DATA: Echocardiogram with normal ejection fraction. IMPRESSION: 1. Atrial fibrillation. 2. Hypertensive heart disease. 3. Diastolic dysfunction. 4. Increased ventricular rate due to noncompliance with medications. 5. Cerebrovascular disease with dementia. 6. Shingles. PLAN: 1. Maintain adequate hydration, oral intake, and pain control. 2. Antiviral therapy. 3. Oral medications as able. 4. May need to give IV for rate control if they increase and the patient continues to refuse oral therapy. Lance Allison M.D. DR: MARK JOB#: [id number] CC:
--- NOTE | 2020-01-18 07:26 | NUR ---
HAND-OFF: Report given to ROBERTA Palm.
[2020-01-18] MEDS: Docusate 100mg cap ORAL SCH ×2 (08:53→17:12)
[2020-01-18] MEDS: Lisinopril 20mg tab ORAL SCH (08:53)
[2020-01-18] MEDS: Digoxin 0.125mg tab ORAL SCH (08:53)
[2020-01-18] MEDS: Metoprolol Tartrate 50mg tab ORAL SCH ×2 (08:53→21:05)
--- NOTE | 2020-01-18 09:32 | NUR ---
NURSE NOTES: received pt awake alert, no distress. no sob. call light within reach. will monitor. bed in lowest position, locked. right side of body weakness noted.
--- NOTE | 2020-01-18 10:35 | Infectious Diseases Prog Note ---
Assessment/Plan Assessment/Plan antibiotics : acyclovir iv A 1. left buttock shingles 2. CVA 3. dementia 4. hypothyroidism P 1. continue iv acyclovir 6 more days 2. will follow up cultures Subjective Constitutional: Denies: fever, chills Respiratory: Denies: shortness of breath, dry cough Gastrointestinal/Abdominal: Denies: nausea, vomiting, diarrhea Musculoskeletal: Reports: pain Allergies: Coded Allergies: No Known Allergies (Unverified , 01/14/20) Objective Vital Signs Last 24 Hour Vital Signs Date Time Temp Pulse Resp B/P (MAP) Pulse Ox O2 Delivery O2 Flow Rate FiO2 01/18/20 08:53 113/68 01/18/20 08:53 92 113/68 01/18/20 08:53 92 01/18/20 08:00 97.5 92 20 113/68 (83) 98 01/18/20 07:52 Room Air 01/18/20 04:00 97.5 76 20 119/78 (92) 98 01/18/20 00:00 97.3 75 21 113/80 (91) 95 01/17/20 21:51 84 119/62 01/17/20 21:00 Room Air 01/17/20 20:00 97.3 84 21 119/62 (81) 97 01/17/20 16:00 97.1 99 18 112/58 (76) 96 01/17/20 12:00 98.1 86 19 103/60 (74) 95 01/17/20 10:56 133/70 01/17/20 10:56 101 133/70 01/17/20 10:56 101 Height (Feet): 5 Weight (Pounds): 151 Respiratory/Chest: lungs clear Cardiovascular: normal rate, regular rhythm, no gallop/murmur Abdomen: soft, non tender Extremities: no edema Skin: ulcers - on left buttock Microbiology Date/Time Source Procedure Growth Status 01/16/20 03:47 Nasal Nares MRSA Culture - Final NO METHICILLIN RESISTANT STAPH AUREUS... Complete Current Medications Medications (Trade) Dose Ordered Sig/Benjamin Route PRN Reason Start Time Stop Time Status Last Admin Dose Admin Acetaminophen (Tylenol) 650 mg Q6H PRN ORAL Mild Pain (Pain Scale 1-4) 01/14/20 23:15 02/13/20 23:14 Acetaminophen/ Hydrocodone Bitart ([place] 10/325) 1 tab Q4H PRN ORAL For pain 5-7 01/14/20 23:15 01/21/20 23:14 01/16/20 10:07 Acyclovir 700 mg/ Sodium Chloride 110 ml @ 110 mls/hr Q12H IV 01/15/20 14:00 02/14/20 13:59 01/18/20 01:05 Atorvastatin Calcium (Lipitor) 40 mg BEDTIME ORAL 01/15/20 21:00 02/14/20 20:59 01/17/20 21:52 Bisacodyl (Dulcolax) 10 mg DAILYPRN PRN RECTAL Constipation 01/14/20 23:15 02/13/20 23:14 Calcium Carbonate (Tums) 1,000 mg Q4H PRN ORAL GASTRIC UPSET 01/14/20 23:15 02/13/20 23:14 Digoxin (Lanoxin) 0.125 mg DAILY ORAL 01/15/20 09:00 02/14/20 08:59 01/18/20 08:53 Docusate Sodium (Colace) 100 mg BID ORAL 01/15/20 09:00 02/14/20 08:59 01/18/20 08:53 Escitalopram Oxalate (Lexapro) 10 mg DAILY ORAL 01/18/20 09:00 02/17/20 08:59 01/18/20 08:53 Famotidine (Pepcid) 20 mg ACBREAKFAST ORAL 01/15/20 06:30 02/14/20 06:29 01/17/20 06:16 Levothyroxine Sodium (Synthroid) 88 mcg DAILY@0630 ORAL 01/15/20 06:30 02/14/20 06:29 01/17/20 06:16 Lidocaine (Lidoderm 5% PATCH) 2 patch DAILY TDERMAL 01/15/20 09:00 02/14/20 08:59 01/18/20 08:54 Lisinopril (PriniviL) 20 mg DAILY ORAL 01/17/20 09:00 02/16/20 08:59 01/18/20 08:53 Magnesium Hydroxide (Mom) 30 ml DAILYPRN PRN ORAL bowel management 01/14/20 23:15 02/13/20 23:14 Metoprolol Tartrate (Lopressor) 50 mg Q12HR ORAL 01/15/20 21:00 02/14/20 08:59 01/18/20 08:53 Rivaroxaban (Xarelto) 20 mg 1800 ORAL 01/15/20 18:00 02/14/20 17:59 01/17/20 17:52 Sodium Phosphate (Fleet's Sodium Phosl Enema) 133 ml DAILY PRN RECTAL Constipation 01/14/20 23:15 02/13/20 23:14 Cedric Reyes MD Jan 18, 2020 10:35
--- NOTE | 2020-01-18 15:01 | NUR ---
NURSE NOTES: NOTIFIED DR BRIAN PT PULLED IV AGAIN, PT REFUSED IV START MULTIPLE TIMES. RN ASKED IF IM ACYCLOVIR , PER MD JUST DC ACYCLOVIR ALTOGETHER
--- NOTE | 2020-01-18 16:07 | NUR ---
*-*DISCHARGE PLANNING*-* PATIENT HAS BEEN REFERRED BACK TO: [facility] P: [phone] F: [phone] *-*CLINICALS FAXED*-* Addendum: 01/18/20 at 1621 by KASSANDRA ARROYO CM SPOKE TO VICENTE REESE PATIENT HAS BEEN ACCEPTED: ROOM# 12-E SKILLED
--- NOTE | 2020-01-18 16:09 | NUR ---
NURSE NOTES: attempted to ask for a bed [facility] rn put on hold multiple times.
--- NOTE | 2020-01-18 16:58 | NUR ---
*-*DISCHARGE PLANNED*-* PATIENT IS BEING ACCEPTED AND DISCHARGED BACK TO: [facility] P: [phone] F: [phone] RM# 12.E SKILLED [facility] [id number] EAT 6PM/1800PM
[2020-01-18] MEDS: Xarelto 10mg tab ORAL SCH (17:13)
--- NOTE | 2020-01-18 17:30 | Discharge Summary ---
DATE OF ADMISSION: 01/14/2020 DATE OF DISCHARGE: 01/18/2020 ADMISSION DIAGNOSES: 1. Cellulitis. 2. Zoster of the hip. 3. Stroke. 4. Atrial fibrillation. 5. Hypertension. 6. Dementia. 7. Encephalopathy. DISCHARGE DIAGNOSES: 1. Cellulitis. 2. Zoster of the hip. 3. Stroke. 4. Atrial fibrillation. 5. Hypertension. 6. Dementia. 7. Encephalopathy. HOSPITAL COURSE: The patient is a pleasant female with a history of atrial fibrillation and prior stroke with a history of left-sided hemiparesis. She was admitted with complaints of cellulitis and shingles. She was refusing oral antibiotics and was started on intravenous acyclovir. She improved clinically. On discharge, she was stable. She will be discharged to complete oral acyclovir for shingles. DISCHARGE MEDICATIONS: Please see discharge medication list for discharge medications. DIET: Cardiac diet. ACTIVITIES: Ad-perfecto. FOLLOWUP: The patient will follow up in 1 to 2 days at the senior care facility. Giancarlo Gann M.D. DR: MICHAEL JOB#: [id number] CC:
--- NOTE | 2020-01-18 19:10 | NUR ---
HAND-OFF: Report given to NEEL GRANADOS.
--- NOTE | 2020-01-18 19:20 | NUR ---
NURSE NOTES:Received report, ambulance was here but according to Dania Yancey she was not notified by keycase assembler that that ambulance was called, and had tried to call report to [facility] but nobody was answering, ambulance will return once rn report accepted, on will call. noted number documented by keycase assembler for [facility] appears to be incorrect number so called a different number and was able to give report at 1950 to [facility] is accepting the patient. and ambulance recalled, will be here in one hour endorsed to dania Pearson who will complete the discharge.
--- NOTE | 2020-01-18 21:00 | NUR ---
NURSE NOTES: Received patient awake, confused, verbal with slurred speech, uncooperative, awaiting ambulance for transfer to SNF.
[2020-01-18] MEDS: Atorvastatin 20mg tab ORAL SCH (21:06)
--- NOTE | 2020-01-18 23:39 | NUR ---
NURSE NOTES: Patient discharged to SNF by ambulance in stable condition.
--- NOTE | 2020-01-19 04:00 | Progress Note ---
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 The patient is confused and not able to have a meaningful conversation. MENTAL STATUS EXAMINATION: The patient is alert and oriented times self. Mood is anxious. Affect is flat. Thought process, there is a paucity of thought content. Thought content, no suicidal or homicidal ideation. Cognition is impaired. Insight and judgment impaired. ASSESSMENT: Stable. PLAN: 1. We will continue current medications. 2. Provide the patient with reality orientation and supportive therapy. Grace Rouse M.D. DR: SYLVIA JOB#: [id number] CC:
--- NOTE | 2020-01-19 05:45 | Progress Note ---
DATE: 01/18/2020 CARDIOLOGY PROGRESS NOTE SUBJECTIVE: The patient continues to receive antiviral therapy for shingles. She has apparent pain. OBJECTIVE: VITAL SIGNS: Blood pressure 113/68, heart rate 92, and respiratory rate 20. LUNGS: Clear. CARDIAC: Irregularly irregular. Normal S1, S2. ABDOMEN: Soft. EXTREMITIES: No edema. SKIN: Left buttock with vesicular eruption. IMPRESSION: 1. Shingles. 2. Acute and chronic diastolic congestive heart failure. 3. Atrial fibrillation, rate controlled. 4. Hypomagnesemia, status post replacement therapy. PLAN: 1. Continue full anticoagulation with apixaban. 2. Maintain current cardiovascular regimen for rate control. 3. Advanced beta-abdulaziz as outpatient should additional rate control be needed. 4. Complete antiviral therapy. 5. Follow up electrolytes and magnesium levels as an outpatient. Lance Allison M.D. DRTamiko Eubanks JOB#: [id number] CC:
== END 2020-01-18 23:30 | DRG 865 ==
LOC: UNDOADMIN 21:59 → 4E 21:59
DX: B02.8 Zoster with other complications (principal); I50.43 Acute on chronic combined systolic (congestive) and diastolic (congestive) heart failure; L03.90 Cellulitis, unspecified; G93.40 Encephalopathy, unspecified; B02.29 Other postherpetic nervous system involvement; Z86.73 Personal history of transient ischemic attack (TIA), and cerebral infarction without residual deficits; I48.91 Unspecified atrial fibrillation; M19.90 Unspecified osteoarthritis, unspecified site; E78.5 Hyperlipidemia, unspecified; E03.9 Hypothyroidism, unspecified; F01.50 Vascular dementia, unspecified severity, without behavioral disturbance, psychotic disturbance, mood disturbance, and anxiety; F32.9 Major depressive disorder, single episode, unspecified; R79.1 Abnormal coagulation profile; I11.0 Hypertensive heart disease with heart failure; E83.42 Hypomagnesemia
CPT/HCPCS: 36415; 80048; 80053; 80061; 80162; 82550; 83735; 83880; 84443; 84550; 85025; 87081; 93005; 93306